=== PATIENT | female | born 1990 | race African-American/Black ===

== ENCOUNTER 2016-02-22 20:08 | Outpatient (CLI) | payer OTHER ==
[~2016-02-22] VITALS: Ht 162.6 cm; Wt 82.3 kg
[~2016-02-22 20:08] MED LIST: ANUSOL HC CREAM30 GM TP; ANUSOL-HC SUPPO25 MG RC; DEPO-PROVER150 MG/M1 IM; IMPLANON68 MG ID; NORCO 325 MG-51 TAB PO; PHENERGAN 25 TA25 MG PO; PHENERGAN25 MG RC; PRENATAL1 TA7 PO; ZOFRAN 4MG T4 MG/TAB PO
[2016-02-22 20:47] LABS: PH 7 (5-8); SQUAMOUS EPITHELIAL 0-2 /hpf; URINE APPEARANCE Clear; URINE BACTERIA Rare /hpf; URINE BILIRUBIN Negative (NEGATIVE); URINE BLOOD Negative (NEGATIVE); URINE COLOR Straw; URINE GLUCOSE Negative (NEGATIVE); URINE KETONE Negative (NEGATIVE); URINE RBC None Seen /hpf; URINE UROBILINOGEN Negative (NEGATIVE); URINE WBC 0-2 /hpf
[2016-02-22 21:20] VITALS: BP 105/60; PULSE 98
[2016-02-22 21:24] VITALS: BP 110/69; PULSE 100; TEMP 98
[2016-02-22 22:00] VITALS: BP 101/68; PULSE 94
[2016-02-22 22:15] VITALS: BP 104/66; PULSE 96
== END 2016-02-22 23:15 | disposition home or self-care (01) ==
LOC: LDRO 20:08
PROVIDERS: Obstetrics & Gynecology
DX: O26.893 Other specified pregnancy related conditions, third trimester (principal); R10.84 Generalized abdominal pain; O99.213 Obesity complicating pregnancy, third trimester; Z3A.31 31 weeks gestation of pregnancy

== ENCOUNTER 2016-04-10 10:42 | Outpatient (CLI) | payer OTHER ==
[~2016-04-10] VITALS: Ht 162.6 cm; Wt 85.0 kg
[2016-04-10 11:02] VITALS: BP 107/61; PULSE 116; TEMP 98.1
[2016-04-10] MEDS ORDERED: ZANTAC 7575 MG PO (11:10)
[2016-04-10] MEDS ORDERED: IRON325 M2 PO (11:10)
[2016-04-10 11:30] VITALS: BP 107/61; PULSE 116; TEMP 98.1
[2016-04-10 12:00] VITALS: BP 106/68; PULSE 106
== END 2016-04-10 12:15 | disposition home or self-care (01) ==
LOC: LDRO 10:42
DX: O47.1 False labor at or after 37 completed weeks of gestation (principal); Z3A.38 38 weeks gestation of pregnancy

== ENCOUNTER 2016-04-29 14:21 | Inpatient (IN) | payer OTHER ==
[2016-04-29] VITALS (19 sets, daily range): BP systolic 99–120; BP diastolic 58–74; PULSE 77–102; TEMP 97.9–98.5
[~2016-04-29] VITALS: Ht 162.7 cm; Wt 84.5 kg
[~2016-04-29 14:21] MED LIST changes: +IRON325 M2 PO; +ZANTAC 7575 MG PO
[2016-04-29 15:29] LABS: MEAN CELL VOLUME 90 fl (80.0-100.0); MEAN CORPUSCULAR HGB CONC 33 g/dl (33.0-37.0); MEAN PLATELET VOLUME 10.8 fl (7.4-10.4); PLATELET COUNT 185 K/mm3 (130-400); RED BLOOD COUNT 4.02 M/mm3 (4.10-5.30); REDCELL DISTRIBUTION WIDTH-CV 14.8 % (11.5-14.5)
[2016-04-29 15:31] LABS: ADD PATHOLOGY DIFF REVIEW NO; HEMATOCRIT 36.3 % (37.0-47.0); HEMOGLOBIN 11.9 g/dl (12.5-16.0); MEAN CORPUSCULAR HEMOGLOBIN 30 pg (27.0-31.0)
[2016-04-29 15:52] LABS: BAND 3 % (0-10); EOSINOPHIL 1 % (0-4); NEUTROPHILS 67 % (42.0-75.2); PLATELET ESTIMATE NORMAL (NORMAL); TOTAL CELLS COUNTED 100
[2016-04-30] VITALS (24 sets, daily range): BP systolic 91–130; BP diastolic 50–93; PULSE 84–118; TEMP 97.8–98.7
[2016-05-01 06:43] VITALS: BP 123/83; PULSE 102
[2016-05-01 07:38] LABS: HEMOGLOBIN 9.6 g/dl (12.5-16.0)
[2016-05-01 17:45] VITALS: BP 118/86; PULSE 76
[2016-05-01 20:00] VITALS: BP 116/69; PULSE 86; TEMP 98.2
[2016-05-02 07:00] VITALS: BP 115/72; PULSE 80; TEMP 98.1
[2016-05-02] MEDS ORDERED: MOTRIN 800800 MG/TAB PO (08:41)
[2016-05-02] MEDS ORDERED: ULTRAM 50MG TAB50 MG PO (08:41)
[2016-05-02 16:12] VITALS: BP 110/62; PULSE 74; TEMP 98.2
[2016-05-02 21:45] VITALS: BP 123/81; PULSE 89; TEMP 98.2
[2016-05-03 08:30] VITALS: BP 116/89; PULSE 87; TEMP 98.4
== END 2016-05-03 16:45 | disposition home or self-care (01) | DRG 765 ==
LOC: LDRO 14:21 → OB 14:58 → LDR 14:58 → OB 04-30 05:25
PROVIDERS: Obstetrics & Gynecology
PROC: 10D00Z1 Extraction of Products of Conception, Low, Open Approach (ICD-10-PCS; principal; 2016-04-30)
PROC: 3E033VJ Introduction of Other Hormone into Peripheral Vein, Percutaneous Approach (ICD-10-PCS; 2016-04-30)
DX: O48.0 Post-term pregnancy (principal); O41.03X0 Oligohydramnios, third trimester, not applicable or unspecified; O76 Abnormality in fetal heart rate and rhythm complicating labor and delivery; O69.2XX0 Labor and delivery complicated by other cord entanglement, with compression, not applicable or unspecified; O69.1XX0 Labor and delivery complicated by cord around neck, with compression, not applicable or unspecified; O99.02 Anemia complicating childbirth; D64.9 Anemia, unspecified; Z3A.41 41 weeks gestation of pregnancy; Z37.0 Single live birth
CPT/HCPCS: J0690; J1885; J2250; J2270; J2405; J2590; J3105; J7120

== ENCOUNTER → 2016-05-06 | Outpatient (CLI) | payer OTHER ==
[~2016-05-06] MED LIST changes: +MOTRIN 800800 MG/TAB PO; +ULTRAM 50MG TAB50 MG PO
== END ==
LOC: OLC 14:12
DX: Z39.1 Encounter for care and examination of lactating mother (principal); Z71.89 Other specified counseling

== ENCOUNTER → 2017-10-10 | Outpatient (CLI) | payer OTHER | LOC: COL.LAB 14:41 | DX: R10.2 Pelvic and perineal pain (principal) ==

== ENCOUNTER → 2018-06-01 | Outpatient (CLI) | payer OTHER ==
[2018-06-01 10:03] LABS: BASO % 0.5 % (0.0-2.0); EOS # 0.1 (0.0-0.7); EOS % 1.3 % (0-4.0); GRAN % 55.2 % (42.2-75.2); HEMOGLOBIN 13.4 g/dl (12.5-16.0); LYMPH % 36.2 % (20.0-51.0); MEAN CELL VOLUME 90 fl (80.0-100.0); MEAN CORPUSCULAR HEMOGLOBIN 30 pg (27.0-31.0); MEAN CORPUSCULAR HGB CONC 33 g/dl (33.0-37.0); MEAN PLATELET VOLUME 10.2 fl (7.4-10.4); MONO # 0.4 (0.1-0.6); MONO % 6.4 % (1.7-9.3); PLATELET COUNT 247 K/mm3 (130-400); RED BLOOD COUNT 4.54 M/mm3 (4.10-5.30); REDCELL DISTRIBUTION WIDTH-CV 13.3 % (11.5-14.5)
[2018-06-01 10:13] LABS: ALBUMIN 4.3 gm/dL (3.5-5.0); BILIRUBIN,TOTAL 0.4 mg/dL (0.0-1.0); CALCIUM 9.3 mg/dL (8.4-10.2); CREATININE, serum 0.82 (0.52-1.25); POTASSIUM 4.4 mmol/L (3.4-5.0); TOTAL PROTEIN 8.4 gm/dL (6.4-8.2)
== END ==
LOC: COL.RAD 09:26
PROVIDERS: Family Medicine
DX: R10.11 Right upper quadrant pain (principal)

== ENCOUNTER → 2018-12-07 | Outpatient (CLI) | payer OTHER | LOC: ZCOL.LAB 17:26 | DX: J02.9 Acute pharyngitis, unspecified (principal) ==

== ENCOUNTER 2019-04-03 20:00 | Emergency (ER) | payer OTHER ==
[~2019-04-03] VITALS: Ht 162.6 cm; Wt 86.4 kg
[2019-04-03 20:05] VITALS: BP 114/65
[2019-04-03] MEDS ORDERED: BUSPAR5 MG PO ×2 (21:20→21:23)
[2019-04-03] MEDS ORDERED: TAMIFLU 75MG75 MG PO (21:20)
[2019-04-03] MEDS ORDERED: ZOLOFT 100MG100 MG PO (21:21)
[2019-04-03 21:48] VITALS: PULSE 98; TEMP 100.4
== END 2019-04-03 21:42 | disposition home or self-care (01) ==
LOC: COL.ER 20:00
DX: J11.1 Influenza due to unidentified influenza virus with other respiratory manifestations (principal)

== ENCOUNTER → 2020-08-06 | Outpatient (CLI) | payer OTHER ==
[~2020-08-06] MED LIST changes: +BUSPAR5 MG PO; +TAMIFLU 75MG75 MG PO; +ZOLOFT 100MG100 MG PO
== END ==
LOC: MC.RAD 08:24
DX: N60.02 Solitary cyst of left breast (principal)

== ENCOUNTER → 2021-01-22 | Outpatient (CLI) | payer OTHER | LOC: MC.RAD 09:57 | DX: N60.02 Solitary cyst of left breast (principal) ==

== ENCOUNTER 2023-05-31 09:50 | Emergency (ER) | payer OTHER ==
[~2023-05-31] VITALS: Ht 162.6 cm; Wt 72.7 kg
[2023-05-31 09:55] VITALS: TEMP 97.9
[2023-05-31] MEDS ORDERED: NS 1,000 ML IV ONE (10:15)
[2023-05-31] MEDS ORDERED: droPERidol 2.5 MG/ML 2 ML VIAL IV ONE (10:30)
[2023-05-31 10:58] LABS: BASO % 0.2 % (0.0-2.0); GRAN # 7.9 K/mm3 (1.4-6.5); GRAN % 86.8 % (42.2-75.2); HEMATOCRIT 37.7 % (37.0-47.0); HEMOGLOBIN 13.1 g/dl (12.5-16.0); LYMPH # 0.9 K/mm3 (1.2-3.4); LYMPH % 9.7 % (20.0-51.0); MEAN CELL VOLUME 88 fl (80.0-100.0); MEAN CORPUSCULAR HEMOGLOBIN 31 pg (27-31); MEAN CORPUSCULAR HGB CONC 35 g/dl (33.0-37.0); MONO # 0.3 K/mm3 (0.1-0.6); MONO % 3.1 % (1.7-9.3); PLATELET COUNT 217 K/mm3 (130-400); RED BLOOD COUNT 4.28 M/mm3 (4.10-5.30); REDCELL DISTRIBUTION WIDTH-CV 12.6 % (11.5-14.5)
[2023-05-31 11:16] LABS: ALBUMIN 4.1 g/dL (3.5-5.0); BILIRUBIN,TOTAL 0.4 mg/dL (0.2-1.2); CALCIUM 9.6 mg/dL (8.4-10.2); CREATININE, serum 0.86 mg/dL (0.57-1.11); POTASSIUM 3.3 mEq/L (3.5-4.5); TOTAL PROTEIN 7.5 g/dl (6.2-8.1)
[2023-05-31 12:27] LABS: COLLECTION METHOD CLEAN CATCH
[2023-05-31 12:36] LABS: PH 8.5 (5.0-8.5); URINE APPEARANCE CLEAR (CLEAR/HAZY); URINE BLOOD 3+ (NEGATIVE); URINE COLOR YELLOW (YELLOW); URINE GLUCOSE NEGATIVE (NEGATIVE); URINE KETONE NEGATIVE (NEGATIVE); URINE NITRATE NEGATIVE (NEGATIVE); URINE PROTEIN(semi-quant) TRACE (NEGATIVE); URINE UROBILINOGEN 0.2 E.U/dL (0.2-1.0)
[2023-05-31 12:45] LABS: TRICYCLIC ANTIDEPRESS URINE NEGATIVE (NEGATIVE)
[2023-05-31] MEDS ORDERED: LORazepam 2 MG/ML 1 ML VIAL IV ONE (13:15)
[2023-05-31] MEDS ORDERED: Ketorolac 30 MG/ML VIAL IV ONE (13:15)
[2023-05-31] MEDS ORDERED: Ondansetron 4 MG/2 ML VIAL IV ONE (13:15)
[2023-05-31] MEDS ORDERED: PHENERGAN25 MG RC (15:00)
[2023-05-31 15:37] VITALS: BP 121/81; PULSE 76
[2023-06-01] MEDS ORDERED: MACROBID 1100 MG/CAP PO (05:39)
[2023-06-01] MEDS ORDERED: KLONOPIN 0.5MG0.5 MG PO (21:43)
[2023-06-03] MEDS ORDERED: ZOFRAN ODT4 MG PO (10:04)
[2023-06-03] MEDS ORDERED: CEFTIN500 MG PO (10:09)
== END 2023-05-31 15:39 | disposition home or self-care (01) ==
LOC: COL.ER 09:50
PROVIDERS: Physician Assistant
DX: R11.2 Nausea with vomiting, unspecified (principal); F41.9 Anxiety disorder, unspecified; Z79.899 Other long term (current) drug therapy
CPT/HCPCS: J1790; J1885; J2060; J2405; J7030

== ENCOUNTER 2023-06-01 03:45 | Emergency (ER) | payer OTHER ==
[~2023-06-01] VITALS: Ht 162.6 cm; Wt 72.7 kg
[2023-06-01 03:51] VITALS: TEMP 97.7
[2023-06-01 04:10] LABS: BASO % 0.1 % (0.0-2.0); GRAN # 8.5 K/mm3 (1.4-6.5); GRAN % 82.5 % (42.2-75.2); HEMOGLOBIN 12.8 g/dl (12.5-16.0); LYMPH # 1.2 K/mm3 (1.2-3.4); LYMPH % 11.6 % (20.0-51.0); MEAN CELL VOLUME 91 fl (80.0-100.0); MEAN CORPUSCULAR HEMOGLOBIN 31 pg (27-31); MEAN CORPUSCULAR HGB CONC 34 g/dl (33.0-37.0); MEAN PLATELET VOLUME 10.4 fl (7.4-10.4); MONO # 0.6 K/mm3 (0.1-0.6); MONO % 5.4 % (1.7-9.3); PLATELET COUNT 239 K/mm3 (130-400); REDCELL DISTRIBUTION WIDTH-CV 12.7 % (11.5-14.5)
[2023-06-01] MEDS ORDERED: droPERidol 2.5 MG/ML 2 ML VIAL IV ONE (04:15)
[2023-06-01] MEDS ORDERED: LR 1,000 ML IV ONE (04:15)
[2023-06-01 04:30] LABS: ALANINE AMINOTRANSFERASE 21 U/L (0-55); ALBUMIN 4.2 g/dL (3.5-5.0); ALKALINE PHOSPHATASE 45 U/L (40-150); ANION GAP 13 mmol/L (7-16); AST,SGOT 28 U/L (5-34); BILIRUBIN,TOTAL 0.5 mg/dL (0.2-1.2); BLOOD UREA NITROGEN 9 mg/dL (7-19); CALCIUM 9.4 mg/dL (8.4-10.2); CHLORIDE 108 mEq/L (98-107); CREATININE, serum 0.88 mg/dL (0.57-1.11); GLUCOSE 123 mg/dL (70-99); LIPASE 56 U/L (8-78); POTASSIUM 3.4 mEq/L (3.5-4.5); SODIUM 139 mEq/L (136-145)
[2023-06-01 04:39] LABS: TROPONIN-I < 0.010 ng/mL (0.00-0.033)
[2023-06-01 04:50] LABS: COLLECTION METHOD CLEAN CATCH
[2023-06-01 05:01] LABS: PH 5.5 (5.0-8.5); URINE APPEARANCE CLOUDY (CLEAR/HAZY); URINE BLOOD 3+ (NEGATIVE); URINE COLOR ORANGE (YELLOW); URINE GLUCOSE NEGATIVE (NEGATIVE); URINE KETONE 2+ (NEGATIVE); URINE NITRATE NEGATIVE (NEGATIVE); URINE PROTEIN(semi-quant) 2+ (NEGATIVE)
[2023-06-01] MEDS ORDERED: MACROBID 1100 MG/CAP PO (05:39)
[2023-06-01 06:04] VITALS: BP 122/78; PULSE 76
[2023-06-01] MEDS ORDERED: KLONOPIN 0.5MG0.5 MG PO (21:43)
[2023-06-03] MEDS ORDERED: ZOFRAN ODT4 MG PO (10:04)
[2023-06-03] MEDS ORDERED: CEFTIN500 MG PO (10:09)
== END 2023-06-01 06:05 | disposition home or self-care (01) ==
LOC: COL.ER 03:45
PROVIDERS: Emergency Medicine
DX: R11.2 Nausea with vomiting, unspecified (principal); R10.13 Epigastric pain; R82.81 Pyuria; D72.829 Elevated white blood cell count, unspecified
CPT/HCPCS: J1790; J7120

== ENCOUNTER 2023-09-28 06:57 | Emergency (ER) | payer SELFPAY ==
[~2023-09-28] VITALS: Ht 162.6 cm; Wt 68.2 kg
[~2023-09-28 06:57] MED LIST changes: +CEFTIN500 MG PO; +KLONOPIN 0.5MG0.5 MG PO; +MACROBID 1100 MG/CAP PO; +ZOFRAN ODT4 MG PO
[2023-09-28 07:05] VITALS: TEMP 98.1
[2023-09-28] MEDS ORDERED: LORazepam 2 MG/ML 1 ML VIAL IV ONE (07:30)
[2023-09-28] MEDS ORDERED: NS 1,000 ML IV ONE (07:30)
[2023-09-28] MEDS ORDERED: Ketorolac 30 MG/ML VIAL IV ONE (07:30)
[2023-09-28] MEDS ORDERED: Ondansetron 4 MG/2 ML VIAL IV ONE (07:30)
[2023-09-28 07:46] LABS: BASO % 0.3 % (0.0-2.0); EOS % 0.1 % (0.0-4.0); GRAN # 5.6 K/mm3 (1.4-6.5); GRAN % 74.3 % (42.2-75.2); HEMOGLOBIN 13.1 g/dl (12.5-16.0); LYMPH # 1.5 K/mm3 (1.2-3.4); LYMPH % 20.3 % (20.0-51.0); MEAN CELL VOLUME 91 fl (80.0-100.0); MEAN CORPUSCULAR HEMOGLOBIN 31 pg (27-31); MEAN CORPUSCULAR HGB CONC 34 g/dl (33.0-37.0); MEAN PLATELET VOLUME 10.1 fl (7.4-10.4); MONO # 0.3 K/mm3 (0.1-0.6); MONO % 4.6 % (1.7-9.3); PLATELET COUNT 257 K/mm3 (130-400); RED BLOOD COUNT 4.28 M/mm3 (4.10-5.30); REDCELL DISTRIBUTION WIDTH-CV 12.9 % (11.5-14.5)
[2023-09-28 08:14] LABS: ALBUMIN 4.5 g/dL (3.5-5.0); BILIRUBIN,TOTAL 1.2 mg/dL (0.2-1.2); C-REACTIVE PROTEIN 0.08 mg/dL (0.00-0.50); CALCIUM 9.6 mg/dL (8.4-10.2); CREATININE, serum 0.93 mg/dL (0.57-1.11); POTASSIUM 3.8 mEq/L (3.5-4.5); TOTAL PROTEIN 8.4 g/dl (6.2-8.1)
[2023-09-28] MEDS ORDERED: ZOFRAN ODT4 MG PO (08:54)
[2023-09-28] MEDS ORDERED: ULTRAM 50MG TAB50 MG PO (08:54)
[2023-09-28 09:10] VITALS: BP 139/97; PULSE 83
== END 2023-09-28 09:10 | disposition home or self-care (01) ==
LOC: COL.ER 06:57
PROVIDERS: Emergency Medicine
DX: N94.6 Dysmenorrhea, unspecified (principal); F41.9 Anxiety disorder, unspecified; R11.2 Nausea with vomiting, unspecified
CPT/HCPCS: J1885; J2060; J2405; J7030

== ENCOUNTER 2023-09-28 10:55 | Emergency (ER) | payer SELFPAY ==
[~2023-09-28] VITALS: Ht 162.6 cm; Wt 68.2 kg
[2023-09-28 11:03] VITALS: TEMP 97.6
[2023-09-28] MEDS ORDERED: NS 1,000 ML IV ONE (12:45)
[2023-09-28] MEDS ORDERED: droPERidol 2.5 MG/ML 2 ML VIAL IV ONE (12:45)
[2023-09-28 16:29] VITALS: BP 133/90; PULSE 78
== END 2023-09-28 16:34 | disposition home or self-care (01) ==
LOC: COL.ER 10:55
DX: R10.2 Pelvic and perineal pain (principal); F41.9 Anxiety disorder, unspecified
CPT/HCPCS: J1790; J7030

== ENCOUNTER 2023-09-29 01:18 | Emergency (ER) | payer SELFPAY ==
[~2023-09-29] VITALS: Ht 162.6 cm; Wt 68.2 kg
[2023-09-29 01:24] VITALS: TEMP 98.1
[2023-09-29 02:41] LABS: COLLECTION METHOD CLEAN CATCH
[2023-09-29 02:51] LABS: PH 5.5 (5.0-8.5); URINE APPEARANCE CLOUDY (CLEAR/HAZY); URINE BLOOD 3+ (NEGATIVE); URINE COLOR YELLOW (YELLOW); URINE GLUCOSE NEGATIVE (NEGATIVE); URINE KETONE 3+ (NEGATIVE); URINE NITRATE NEGATIVE (NEGATIVE); URINE PROTEIN(semi-quant) 1+ (NEGATIVE); URINE UROBILINOGEN 0.2 E.U/dL (0.2-1.0)
[2023-09-29] MEDS ORDERED: Ketorolac 30 MG/ML VIAL IV ONE (03:00)
[2023-09-29] MEDS ORDERED: LORazepam 2 MG/ML 1 ML VIAL IV ONE (03:00)
[2023-09-29] MEDS ORDERED: NS 1,000 ML IV ONE (03:00)
[2023-09-29 03:38] LABS: BASO % 0.1 % (0.0-2.0); GRAN # 8.5 K/mm3 (1.4-6.5); GRAN % 82.4 % (42.2-75.2); HEMATOCRIT 37.5 % (37.0-47.0); HEMOGLOBIN 12.6 g/dl (12.5-16.0); LYMPH # 1.2 K/mm3 (1.2-3.4); LYMPH % 11.1 % (20.0-51.0); MEAN CELL VOLUME 92 fl (80.0-100.0); MEAN CORPUSCULAR HEMOGLOBIN 31 pg (27-31); MEAN CORPUSCULAR HGB CONC 34 g/dl (33.0-37.0); MEAN PLATELET VOLUME 10.1 fl (7.4-10.4); MONO # 0.6 K/mm3 (0.1-0.6); MONO % 6.1 % (1.7-9.3); PLATELET COUNT 252 K/mm3 (130-400); RED BLOOD COUNT 4.09 M/mm3 (4.10-5.30); REDCELL DISTRIBUTION WIDTH-CV 12.8 % (11.5-14.5)
[2023-09-29] MEDS ORDERED: Iohexol 300 - 100 ML VIAL IV ONE (03:49)
[2023-09-29] MEDS ORDERED: NS 50 ML IV ONE (03:54)
[2023-09-29 03:59] LABS: ALBUMIN 4.6 g/dL (3.5-5.0); BILIRUBIN,TOTAL 0.9 mg/dL (0.2-1.2); CALCIUM 9.5 mg/dL (8.4-10.2); CREATININE, serum 0.88 mg/dL (0.57-1.11); POTASSIUM 3.8 mEq/L (3.5-4.5); TOTAL PROTEIN 8.5 g/dl (6.2-8.1)
[2023-09-29 05:28] VITALS: BP 143/93; PULSE 80
[2023-09-30] MEDS ORDERED: MAGNESIUM200 MG PO (09:11)
== END 2023-09-29 05:35 | disposition home or self-care (01) ==
LOC: COL.ER 01:18
PROVIDERS: Emergency Medicine
DX: G89.29 Other chronic pain (principal); R10.2 Pelvic and perineal pain; R11.2 Nausea with vomiting, unspecified
CPT/HCPCS: J1885; J2060; J2765; J7030; Q9967

== ENCOUNTER 2023-09-29 23:37 | Observation (INO) | payer SELFPAY ==
[~2023-09-29] VITALS: Ht 162.6 cm; Wt 69.9 kg
[2023-09-30] VITALS (10 sets, daily range): BP systolic 139–155; BP diastolic 90–96; PULSE 73–85; TEMP 98.3–99.5
[2023-09-30] MEDS ORDERED: droPERidol 2.5 MG/ML 2 ML VIAL IV ONE (00:30)
[2023-09-30] MEDS ORDERED: NS 1,000 ML IV ONE (00:30)
[2023-09-30 01:14] LABS: BILIRUBIN,TOTAL 1.5 mg/dL (0.2-1.2); CREATININE, serum 0.9 mg/dL (0.57-1.11); TOTAL PROTEIN 9.2 g/dl (6.2-8.1)
[2023-09-30 01:21] LABS: POTASSIUM 4.1 mEq/L (3.5-4.5)
[2023-09-30 01:45] LABS: BASO % 0.1 % (0.0-2.0); GRAN # 5.8 K/mm3 (1.4-6.5); GRAN % 74.9 % (42.2-75.2); HEMATOCRIT 37.6 % (37.0-47.0); HEMOGLOBIN 12.7 g/dl (12.5-16.0); LYMPH # 1.3 K/mm3 (1.2-3.4); LYMPH % 17.2 % (20.0-51.0); MEAN CELL VOLUME 90 fl (80.0-100.0); MEAN CORPUSCULAR HEMOGLOBIN 31 pg (27-31); MEAN CORPUSCULAR HGB CONC 34 g/dl (33.0-37.0); MEAN PLATELET VOLUME 10.4 fl (7.4-10.4); MONO # 0.6 K/mm3 (0.1-0.6); MONO % 7.5 % (1.7-9.3); PLATELET COUNT 200 K/mm3 (130-400); RED BLOOD COUNT 4.17 M/mm3 (4.10-5.30); REDCELL DISTRIBUTION WIDTH-CV 12.7 % (11.5-14.5)
[2023-09-30 03:27] LABS: COLLECTION METHOD CLEAN CATCH
[2023-09-30 03:37] LABS: PH 5.5 (5.0-8.5); URINE APPEARANCE CLEAR (CLEAR/HAZY); URINE BLOOD 1+ (NEGATIVE); URINE COLOR YELLOW (YELLOW); URINE GLUCOSE NEGATIVE (NEGATIVE); URINE KETONE 3+ (NEGATIVE); URINE NITRATE NEGATIVE (NEGATIVE); URINE PROTEIN(semi-quant) TRACE (NEGATIVE); URINE UROBILINOGEN 0.2 E.U/dL (0.2-1.0)
[2023-09-30 04:16] LABS: TRICYCLIC ANTIDEPRESS URINE NEGATIVE (NEGATIVE)
[2023-09-30] MEDS ORDERED: Acetaminophen 325 MG TAB PO PRN (05:15)
[2023-09-30] MEDS ORDERED: Ondansetron 4 MG/2 ML VIAL IV PRN (05:15)
[2023-09-30] MEDS ORDERED: NS 1,000 ML IV SCH (05:15)
[2023-09-30] MEDS ORDERED: Mag/Al Hydrox/Simeth Susp 30 ML CUP PO PRN (06:00)
[2023-09-30] MEDS ORDERED: Pantoprazole 40 MG in NS 10 ML IV SCH (09:00)
[2023-09-30] MEDS ORDERED: MAGNESIUM200 MG PO (09:11)
[2023-09-30] MEDS ORDERED: clonazePAM 0.5 MG TAB PO PRN (09:30)
[2023-09-30] MEDS ORDERED: SUMAtriptan 25 MG TAB PO ONE (09:30)
--- NOTE | 2023-09-30 10:01 | NUR ---
Patient admitted to room 348. Patient anxious, blinds opened, and door left open due to patient feeling claustrophobia. Patient having hiccups, nausea without vomiting, ruq pain, chest pain, headache/migraine. called, refered to who will be admitting doctor. called and reviewed patient with him. Orders obtained. Admission assessment completed and social work made aware of her social determinent questions responses. Patient really wanting to shower, hygiene supplies provided. Ivf as ordered. Ice water provided, suggested patient just sip with her nausea. Will closely montior.
--- NOTE | 2023-09-30 10:30 | NUR ---
SEA [employer] LAND OFFICER met with pt bedside to complete initial consult and discuss discharge planning. Jose Juan was bedside also and Pt okay with [employer] OFFICER asking questions while she is present. Pt does not want to be alone and jose juan is going to sit with her a bit. Pt sees PCP Bertha Castellanos at [facility]. Uses [facility] [address] for [address]. Pt has no insurance. Pt lives at home with 7 year old daughter. Pt stated on SDOH that she could lose housing in the next 2 months but denied housing resources. Father of child is currently caring for Pt daughter. Pt does not have a DPOA and states there is nobody who she would like to name. Unable to provide NOK decision maker for her. Pt is open to financial counseling reaching out to her Monday. SEA [employer] LAND OFFICER will send email to them. Pt has no concerns returning home except for her being scared that she will be home alone and not feel good. Pt stated that is why she came abck to the hospital. SEA [employer] LAND OFFICER provided food resources to the pt. She stated that she has food right now but there have been times in the past she was unable to obtain food. D/C: Home
--- NOTE | 2023-09-30 12:28 | NUR ---
Patient resting in bed. room lights off, music playing on her phone. Patient seems much calmer and relaxed. denies pain at this time. Will continue to monitor, but let her rest
--- NOTE | 2023-09-30 13:51 | NUR ---
Data: Patient accepted spiritual care visit offered during Latex Caster rounds. Assessment: Patient is "feeling sick" (nauseous) which is contributing to Patient's anxiety. Plan of Care: Latex Caster provided supportive listening, prayer, and a ministry of presence as Latex Caster sat with Patient until she fell asleep. Latex Caster obtained a sign from the RN station alerting others to check with RN before entering Patient's room so that she has ample time to sleep. Chaplains will remain available as needed/requested while Patient is admitted to this hospital.
--- NOTE | 2023-09-30 15:13 | NUR ---
Patient having hiccups again and starting again to feel axious, called. Orders obtained.
--- NOTE | 2023-09-30 15:21 | NUR ---
Data: Follow up visit with Patient. Discussed some life events shared at earlier visit. Assessment: Patient had hiccups; still some anxiety. Plan of Care: Exceptional Student Education Aide provided supportive listening, prayer, and contacted Patients RN. RN was with Patient when Exceptional Student Education Aide left the room. Patient thanked Exceptional Student Education Aide for the follow up visit. Chaplains will remain available as needed/requested while Patient is admitted to this hospital.
[2023-09-30] MEDS ORDERED: LORazepam 0.5 MG TAB PO ONE (16:00)
--- NOTE | 2023-09-30 16:35 | NUR ---
notifed and made aware of syncopal episode in the bathroom, orders obtained. Tele on, EKG conpleted. Patient reamins anxious. Reports not feeling better and wanting to sleep. Now dose of ativan given. Fresh ice water and warm blanket provided. Patient made a high fall risk and made aware why, verbalized understanding. Bed alarm on. supervisor ski production did ambulate patient in halls and was up in chair breifly, but reported being uncomfortable in chair. Patient has had no emesis today, but reports nausea. Humberto velez
[2023-09-30] MEDS ORDERED: amLODIPine 10 MG TAB PO SCH (16:59)
[2023-09-30] MEDS ORDERED: Lisinopril 10 MG TAB PO SCH (16:59)
[2023-09-30] MEDS ORDERED: hydrALAZINE 25 MG TAB PO PRN (17:00)
--- NOTE | 2023-09-30 17:20 | NUR ---
Patient wanting to shower, explained to patient with her recent episode of sycope, that I did not feel it was safe to shower at this time. Patient showered earlier this am. She is wanting to shower for the warm water to run over her body. Called and we compromised for a Kpad for patient safety. Patient explained to about her new medication ordered Norvasc, patient agreeable to take. We discussed elevated BP could play a role in her headache like sypmptoms. When rounded patient requested tele be DC, placed tele DC ordered. I did call to clarify being that patient just had tele placed. Tele off. Patient not wanting to rest. Bed Alarm on. Will monitor
--- NOTE | 2023-09-30 18:37 | NUR ---
Patient resting in bed, will report off to nightnurse
--- NOTE | 2023-09-30 21:00 | NUR ---
PATIENT ALERT AND ORIENTED. X4. VSS. PATIENT HERE FOR N/V AND ANXIETY. FLUIDS INFUSING INTO IV IN LEFT WRIST. PATIENT DENIES ANY PAIN. PATIENT RESTING IN BED ON RA. NO FURTHER NEEDS. CALL LIGHT IN REACH. BED ALARM ON.
[2023-10-01] VITALS (7 sets, daily range): BP systolic 143–146; BP diastolic 90–94; PULSE 74–98; TEMP 98.3–98.8
[2023-10-01 06:14] LABS: BASO # 0.1 K/mm3 (0.0-0.2); BASO % 0.7 % (0.0-2.0); EOS # 0.2 K/mm3 (0.0-0.7); EOS % 2.4 % (0.0-4.0); GRAN # 3.9 K/mm3 (1.4-6.5); GRAN % 57.7 % (42.2-75.2); HEMATOCRIT 38.3 % (37.0-47.0); HEMOGLOBIN 13.4 g/dl (12.5-16.0); MEAN CELL VOLUME 88 fl (80.0-100.0); MEAN CORPUSCULAR HEMOGLOBIN 31 pg (27-31); MEAN CORPUSCULAR HGB CONC 35 g/dl (33.0-37.0); MEAN PLATELET VOLUME 10.3 fl (7.4-10.4); MONO # 0.6 K/mm3 (0.1-0.6); MONO % 8.9 % (1.7-9.3); PLATELET COUNT 237 K/mm3 (130-400); RED BLOOD COUNT 4.35 M/mm3 (4.10-5.30); REDCELL DISTRIBUTION WIDTH-CV 11.9 % (11.5-14.5)
[2023-10-01 06:46] LABS: CALCIUM 8.5 mg/dL (8.4-10.2); CREATININE, serum 0.74 mg/dL (0.57-1.11); POTASSIUM 3.1 mEq/L (3.5-4.5)
--- NOTE | 2023-10-01 08:00 | NUR ---
Pt. sitting up in bed. Pt. is A&OX3, assessment complete. Pt. denies nausea or vomiting this am. Pt. asks if she can just sit in the shower. Reminded pt. that d/t her being a fall risk someone would have to remain in the bathroom with the pt. and that we would only be able to arrange a 15 min shower. Pt. agrees. HAND MICA PLATE LAYER Narda with assist when available. INT to lt. wrist infiltrated, INT discontinued. Dr. Champagne notified and will change IV meds PO. Pt. denies further needs, call light within reach.
[2023-10-01] MEDS ORDERED: *Potassium Replacement Protocol MC SCH (09:15)
[2023-10-01] MEDS ORDERED: REGLAN 10MG10 MG/TAB PO (09:40)
[2023-10-01] MEDS ORDERED: NORVASC 10MG10 MG PO (09:40)
[2023-10-01] MEDS ORDERED: ZOFRAN ODT4 MG PO (09:41)
[2023-10-01] MEDS ORDERED: PROTONIX 40MG T40 MG PO (09:41)
[2023-10-01] MEDS ORDERED: ADVOCATE BLOOD1 EAC1 MC (09:44)
[2023-10-01] MEDS ORDERED: Potassium Bicarbonate/Citrate 20 MEQ Effervescent TAB PO SCH (09:45)
[2023-10-01] MEDS ORDERED: Metoclopramide 10 MG TAB PO SCH (11:30)
--- NOTE | 2023-10-01 13:39 | NUR ---
Pt. with discharge orders. INT discontinued this am. Reviewed and gave discharge packet to the pt. Pt. dressed and escorted out by wheelchair.
== END 2023-10-01 13:52 | disposition home or self-care (01) ==
LOC: COL.ER 23:37 → SURG 09-30 05:07
PROVIDERS: Emergency Medicine; Physician Assistant; ADMIT Hospitalist
DX: R11.15 Cyclical vomiting syndrome unrelated to migraine (principal); F12.90 Cannabis use, unspecified, uncomplicated
CPT/HCPCS: G0378; J0780; J1650; J1790; J2405; J2470; J2765; J7030